=== PATIENT | male | born 1970 | race Caucasian/White ===

== ENCOUNTER 2017-08-19 04:31 | Emergency (ER) | payer OTHER ==
[~2017-08-19] VITALS: Ht 182.9 cm; Wt 122.5 kg
[~2017-08-19 04:31] MED LIST: AMOXICILLIN 50500 MG PO; AZITHROMYCIN 2250 MG PO; BENTYL 10 MG CA10 M1 PO; CARAFATE 1 GM TA1 GM PO; CIPRO500 MG PO; CIPROFLOXACIN500 M1 PO; CLEOCIN HCL300 MG PO; DIABETA 5MG TABL5 MG PO; DOXYCYCLINE 10100 MG PO; FLAGYL500 MG PO; FLEXERIL PO; HYDROCODON-ACE1 EAC7 PO; HYDROCODONE-AP1 EAC6 PO; HYDROCODONE-APA1 TA1 PO; IBUPROFEN 800800 M1 PO; IBUPROFEN 800800 MG PO; KEFLEX500 MG PO; LIDOCAINE VISC100 M1 MM; NOHOMEMEDICATIONS; NORCO 5-325 TA1 EACH PO; PENICILLIN V P500 MG PO; PENICILLIN VK500 MG PO; PERCOCET 5-3251 EACH PO; PERCOCET 7.5-31 EACH PO; PHENERGAN 25 MG25 MG PO; ULTRAM 50MG TAB50 MG PO; VICODIN 5-5001 EACH PO; ZOFRAN ODT4 MG PO
[2017-08-19] MEDS ORDERED: JANUVIA25 MG PO (04:42)
[2017-08-19] MEDS ORDERED: IBUPROFEN 800800 MG PO (05:13)
[2017-08-19] MEDS ORDERED: PERCOCET 5-3251 EACH PO (05:13)
[2017-08-19 05:31] VITALS: BP 139/100
== END 2017-08-19 05:34 | disposition home or self-care (01) ==
LOC: M.ERS 04:31
DX: S62.394A Other fracture of fourth metacarpal bone, right hand, initial encounter for closed fracture (principal); I10 Essential (primary) hypertension; E11.9 Type 2 diabetes mellitus without complications; Z77.22 Contact with and (suspected) exposure to environmental tobacco smoke (acute) (chronic); Z88.8 Allergy status to other drugs, medicaments and biological substances; W01.0XXA Fall on same level from slipping, tripping and stumbling without subsequent striking against object, initial encounter; Y93.89 Activity, other specified; Y92.89 Other specified places as the place of occurrence of the external cause; Y99.8 Other external cause status

== ENCOUNTER → 2017-09-02 | Outpatient (CLI) | payer OTHER ==
[~2017-09-02] MED LIST changes: +JANUVIA25 MG PO; +LIDOCAINE VISC100 ML TOP; +LIPITOR10 MG PO; +NORCO 5-325 TA1 EAC1 PO
== END ==
LOC: M.CT 12:39
DX: S62.314A Displaced fracture of base of fourth metacarpal bone, right hand, initial encounter for closed fracture (principal); X58.XXXA Exposure to other specified factors, initial encounter; Y93.89 Activity, other specified; Y92.89 Other specified places as the place of occurrence of the external cause; Y99.8 Other external cause status

== ENCOUNTER 2017-10-04 17:18 | Emergency (ER) | payer OTHER ==
[~2017-10-04] VITALS: Ht 182.9 cm; Wt 129.3 kg
[~2017-10-04 17:18] MED LIST changes: -LIDOCAINE VISC100 ML TOP; -LIPITOR10 MG PO; -NORCO 5-325 TA1 EAC1 PO
[2017-10-04 17:22] VITALS: BP 148/106
[2017-10-04] MEDS ORDERED: LIPITOR10 MG PO (17:23)
[2017-10-04] MEDS ORDERED: PENICILLIN VK500 MG PO (17:27)
[2017-10-04] MEDS ORDERED: LIDOCAINE VISC100 ML TOP (17:27)
[2017-10-04] MEDS ORDERED: NORCO 5-325 TA1 EAC1 PO (17:27)
== END 2017-10-04 17:37 | disposition home or self-care (01) ==
LOC: M.ERS 17:18
DX: K02.9 Dental caries, unspecified (principal); I10 Essential (primary) hypertension; E11.9 Type 2 diabetes mellitus without complications; Z77.22 Contact with and (suspected) exposure to environmental tobacco smoke (acute) (chronic)

== ENCOUNTER → 2019-02-08 | Outpatient (CLI) | payer OTHER ==
[~2019-02-08] MED LIST changes: +LIDOCAINE VISC100 ML TOP; +LIPITOR10 MG PO; +NORCO 5-325 TA1 EAC1 PO
== END ==
LOC: M.MRI 02-04 07:30
DX: M75.101 Unspecified rotator cuff tear or rupture of right shoulder, not specified as traumatic (principal); M19.011 Primary osteoarthritis, right shoulder; M75.81 Other shoulder lesions, right shoulder

== ENCOUNTER → 2019-05-17 | Outpatient (CLI) | payer OTHER | LOC: M.MRI 07:14 | DX: S80.02XA Contusion of left knee, initial encounter (principal); M79.4 Hypertrophy of (infrapatellar) fat pad; X58.XXXA Exposure to other specified factors, initial encounter; Y93.89 Activity, other specified; Y92.89 Other specified places as the place of occurrence of the external cause; Y99.8 Other external cause status ==

== ENCOUNTER → 2019-07-12 | Outpatient (CLI) | payer OTHER | LOC: M.ULTRA 14:30 | DX: R22.42 Localized swelling, mass and lump, left lower limb (principal) ==

== ENCOUNTER 2020-06-13 02:43 | Emergency (ER) | payer OTHER ==
[~2020-06-13] VITALS: Ht 182.9 cm; Wt 129.3 kg
[2020-06-13] MEDS ORDERED: Magic Mouthwash SWISH&SPIT (03:11)
[2020-06-13 03:22] VITALS: BP 176/108
== END 2020-06-13 03:22 | disposition home or self-care (01) ==
LOC: M.ERS 02:43
DX: K08.89 Other specified disorders of teeth and supporting structures (principal); Z77.22 Contact with and (suspected) exposure to environmental tobacco smoke (acute) (chronic); I10 Essential (primary) hypertension; E11.9 Type 2 diabetes mellitus without complications; Z90.49 Acquired absence of other specified parts of digestive tract